=== PATIENT | female | born 1945 | race Caucasian/White ===

== ENCOUNTER 2018-04-21 08:52 | Emergency (ER) | payer OTHER ==
[~2018-04-21] VITALS: Ht 167.6 cm; Wt 95.3 kg
[2018-04-21 10:18] LABS: Eosinophils # (auto) 0 uL; Eosinophils % (auto) 0.2 % (0.0-7.0); Hemoglobin 10.9 g/dL (12.2-16.2); Lymphocytes # (auto) 1.2 uL; Monocytes # (auto) 0.4 uL
[2018-04-21 10:19] LABS: Basophils # (auto) 0.1 uL; Basophils % (auto) 1.4 % (0.0-2.0); Lymphocytes % (auto) 25.3 % (10.0-50.0); Mean Corpuscular Volume 75.1 fL (80.0-100.0); Monocytes % (auto) 8.6 % (0.0-12.0); Neutrophils % (auto) 64.5 % (37.0-80.0); Nucleated Red Blood Cells % 0.2 %; Platelet Count (auto) 337 10^3/uL (140-450); Red Blood Cells 4.53 10^6/uL (4.0-5.20); White Blood Cell 4.7 10^3/uL (4.4-10.8)
[2018-04-21 10:29] LABS: Alanine Aminotransferase 13 U/L (13-56); Albumin 3.1 g/dL (3.4-5.0); Anion Gap 9 (5-15); Aspartate Aminotransferase 9 U/L (15-37); BUN/Creatinine Ratio 20.5; Blood Urea Nitrogen 18 mg/dL (7-18); Calcium 8.9 mg/dL (8.5-10.1); Carbon Dioxide 23 mmol/L (21-32); Chloride 111 mmol/L (98-107); GFR African American 81 mL/min; GFR Non-African American 67 mL/min; Glucose 122 mg/dL (74-106); Sodium 143 mmol/L (136-145)
[2018-04-21 10:30] LABS: INR 1.03 (0.9-1.15); Partial Thromboplastin Time 26.9 sec (23.78-33.04)
[2018-04-21 10:37] LABS: Alkaline Phosphatase 83 U/L (45-117); Bilirubin, Total 0.9 mg/dL (0.2-1.0); Total Protein 6.8 g/dL (6.4-8.2)
[2018-04-21] MEDS ORDERED: SODIUM CHLORIDE 0.9% 1,000 ML IV ONE (14:45)
[2018-04-21] MEDS ORDERED: HYDROcodone-ACET 5/325MG TAB PO ONE (16:00)
[2018-04-21 17:03] VITALS: BP 151/75
== END 2018-04-21 17:05 | disposition home or self-care (01) ==
LOC: ER 08:59
DX: S80.12XA Contusion of left lower leg, initial encounter (principal); Z88.2 Allergy status to sulfonamides; W22.8XXA Striking against or struck by other objects, initial encounter; Y93.89 Activity, other specified; Y99.8 Other external cause status; Y92.89 Other specified places as the place of occurrence of the external cause
CPT/HCPCS: 36415; 71045; 80053; 83880; 84484; 85025; 85610; 85730; 93005; 93971; 99284; J7030